=== PATIENT | female | born 1965 | race Caucasian/White ===

== ENCOUNTER 2021-01-23 11:19 | Observation (INO) | payer OTHER ==
[2021-01-23 12:15] LABS: Absolute Neutrophil Ct (ANC) 5.46 (1.4-6.9); BASOPHIL % 0.6 % (0.0-0.4); Basophil (Absolute #) 0.05 (0-0.4); Eosinophil % 3.1 % (0.00-5.0); Eosinophil (Absolute #) 0.24 (0-0.5); Hematocrit 41.8 % (35-47); Hemoglobin 14.2 gm/dl (12.0-16.0); Lymphocyte (Absolute #) 1.39 (1.0-4.6); Lymphocytes % 17.8 % (24.0-44.0); Mean Cell Volume 84.4 fl (78-100); Mean Corpuscular Hemoglobin 28.7 pg (26-32); Mean Platelet Volume 10.1 fl (7.5-11.0); Monocyte (Absolute #) 0.65 (0.0-1.3); Monocytes % 8.3 % (0.0-12.0); Neutrophil % 70.2 % (36.0-66.0); Platelet Count 203 K/mm3 (150-450); Red Blood Count 4.95 M/mm3 (4.1-5.4); White Blood Count 7.8 K/mm3 (4.0-10.5)
[2021-01-23] MEDS ORDERED: APRESOLINE 20 MG/ML INJ IV ONE (13:22)
[2021-01-23] MEDS ORDERED: BENADRYL 50 MG/ML IV ONE (13:23)
[2021-01-23] MEDS ORDERED: Reglan 10 MG/2 ML IV ONE (13:23)
[2021-01-23] MEDS ORDERED: TYLENOL 325 MG PO ONE (13:23)
[2021-01-23] MEDS ORDERED: TYLENOL 325 MG ONE (13:26)
[2021-01-23] MEDS ORDERED: BENADRYL 50 MG/ML ONE (13:43)
[2021-01-23] MEDS ORDERED: Reglan 10 MG/2 ML ONE (13:43)
[2021-01-23] MEDS ORDERED: Magnesium 1 Gm / 100 Ml D5W*** 100 ML IV ONE (13:43)
[2021-01-23] MEDS ORDERED: APRESOLINE 20 MG/ML INJ ONE (13:43)
[2021-01-23] MEDS: Magnesium 1 Gm / 100 Ml D5W*** 100 ML IV SCH (13:44)
--- NOTE | 2021-01-23 13:49 | ERPHSYRPT ---
- History of Present Illness Time Seen by Provider: 01/23/21 11:21 Source: patient Exam Limitations: no limitations Patient Subjective Stated Complaint: PT states "I have had a horrible headach for the past three days and my blood pressure was 180/98 this morning and I took an extra metoprolol and my head hurts so bad." Triage Nursing Assessment: Pt presented alert and oriented X 3, skin pwd. Pt ambulates with an upright steady gait, able to speak in clear full sentences pt in no apparent respiratory distress. Pt able to move all extremities. Pt pupils are PERRL. Pt had headache on right temporal region only. Physician History: 55 years old female with multiple medical problems including insulin-dependent diabetes mellitus, hypertension, hyperlipidemia, coronary artery disease status post post multiple stenting presented in the ER with right-sided headache for the last 3 days, continuous, without any significant aggravating or relieving factors. Denies any associated visual disturbance, numbness tingling or focal weakness. Described as a sharp pain moderate to severe intensity with some radiation to the neck area. No chest pain palpitations or shortness of breath reported. No difficulty speech. No history of migraines. Timing/Duration: day(s) (3), constant, gradual onset, worse Quality: sharpness Head Pain Location: frontal, temporal Severity of Pain-Max: moderate Severity of Pain-Current: moderate Recent Head Trauma: no recent headache/trauma Associated Symptoms: neck pain, sensitive to light, No loss of consciousness, No nausea/vomiting, No sinus infection, No speech problems, No stiff neck, No trouble walking, No vision changes, No visual disturbance Previous symptoms: no prior history Allergies/Adverse Reactions: clopidogrel [From Plavix] Allergy (Severe, Verified 01/23/21 11:33) Hives Home Medications: Amlodipine Besylate 5 mg [Norvasc 5 mg] 5 mg PO DAILY 01/23/21 [History] Aspirin EC 81 mg [Ecotrin 81 mg] 81 mg PO DAILY 01/23/21 [History] Gabapentin 400 mg [Neurontin 400 MG] 400 mg PO TID 01/23/21 [History] HydrALAzine HCL 25 MG TAB [Apresoline 25 MG TABLET] 25 mg PO BID 01/23/21 [History] Insulin Lispro [Admelog] 1 unit IM DAILY PRN 01/23/21 [History] Isosorbide Mononitrate [Isosorbide Mononitrate ER] 120 mg PO DAILY 01/23/21 [History] Levothyroxine Sodium [Levothyroxine] 50 mcg PO DAILY 01/23/21 [History] Lisinopril 40 mg PO DAILY 01/23/21 [History] Metoprolol Succinate 50 mg [Toprol Xl 50 MG] 50 mg PO BID 01/23/21 [History] Nitroglycerin 0.4 mg Tablet [Nitrostat 0.4 MG Tablet] 0.4 mg SL DAILY PRN 01/23/21 [History] Oxybutynin Chloride Xl 5 mg [Ditropan XL 5 MG] 5 mg PO DAILY 01/23/21 [History] Rosuvastatin Calcium 20 mg PO HS 01/23/21 [History] Ticagrelor [Brilinta] 90 mg PO BID 01/23/21 [History] Hx Tetanus, Diphtheria Vaccination/Date Given: No Hx Influenza Vaccination/Date Given: Yes Hx Pneumococcal Vaccination/Date Given: Yes Immunizations Up to Date: Yes Travel Risk - International Travel Have you traveled outside of the country in past 3 weeks: No - Coronavirus Screening Are you exhibiting any of the following symptoms?: No Close contact with a COVID-19 positive Pt in past 14-21 Days: No - Vaccine Status Have you recieved a Covid-19 vaccination: No - Review of Systems Constitutional: No Symptoms Eyes: No Symptoms Ears, Nose, & Throat: No Symptoms Respiratory: No Symptoms Cardiac: No Symptoms Abdominal/Gastrointestinal: No Symptoms Genitourinary Symptoms: No Symptoms Musculoskeletal: No Symptoms Skin: No Symptoms Neurological: Headache Psychological: No Symptoms Endocrine: No Symptoms Hematologic/Lymphatic: No Symptoms Immunological/Allergic: No Symptoms - Past Medical History Pertinent Past Medical History: Yes Cardiac History: Coronary Artery Disease, High Cholesterol, Hypertension Endocrine Medical History: Diabetes Type I - Past Surgical History Past Surgical History: Yes Other Surgical History: heart cath. tubal - Social History Smoking Status: Never smoker Exposure to second hand smoke: No Drug Use: none Patient Lives Alone: No - Female History Hx Last Menstrual Period: no more Hx Now: No - Nursing Vital Signs Nursing Vital Signs: Initial Vital Signs Temperature 97.4 F 01/23/21 11:23 Pulse Rate 66 01/23/21 11:23 Respiratory Rate 20 01/23/21 11:23 Blood Pressure 207/96 01/23/21 11:23 O2 Sat by Pulse Oximetry 97 01/23/21 11:23 Pain Scale Pain Intensity 7 - Physical Exam General Appearance: no apparent distress, alert Eye Exam: PERRL/EOMI, other (Questionable ptosis left) Ears, Nose, Throat Exam: normal ENT inspection, TMs normal, pharynx normal, moist mucous membranes Neck Exam: normal inspection, non-tender, supple, full range of motion Respiratory Exam: normal breath sounds, lungs clear Cardiovascular Exam: regular rate/rhythm, normal heart sounds Gastrointestinal/Abdominal Exam: soft, normal bowel sounds, No tenderness Back Exam: normal inspection, normal range of motion Extremity Exam: normal inspection, normal range of motion, pelvis stable Mental Status Exam: alert, oriented x 3, cooperative building carpenter Exam: normal hearing, normal speech, PERRL, No abnormal eye position Coordination/Gait Exam: normal finger to nose, normal gait, normal cerebellar function, negative Romberg's sign Motor/Sensory Exam: no motor deficit, no sensory deficit, no pronator drift, negative Babinski's sign Skin Exam: normal color SpO2 Interpretation: normal SpO2: 97 O2 Delivery: Room Air - Course EKG Interpreted by Me: RATE (59), Sinus Rafa, NORMAL AXIS, NORMAL INTERVALS, NORMAL QRS Ordered Tests: Active Orders 24 hr Category Date Time Status Manufacturing Assistant STAT Care 01/23/21 11:48 Active EKG-ER Only STAT Care 01/23/21 11:47 Active IV Insertion STAT Care 01/23/21 11:47 Active NPO (ED) STAT Care 01/23/21 11:47 Active Pulse Oximetry (ED) STAT Care 01/23/21 11:47 Active Tele-Health Consult ROUTINE Cons 01/23/21 13:32 Active CHEST 1 VIEW (PORTABLE) Stat Exams 01/23/21 11:[address] ANGIOGRAPHY NECK [CT] Stat Exams 01/23/21 13:23 Ordered CTA HEAD W AND/OR WO CONTRAST [CT] Stat Exams 01/23/21 13:24 Ordered HEAD WITHOUT CONTRAST [CT] Stat Exams 01/23/21 11:48 Taken CBC W DIFF Stat Lab 01/23/21 11:55 Completed CMP Stat Lab 01/23/21 11:55 Received Glucose Stat Lab 01/23/21 11:55 Completed POCT GLUCOSE Stat Lab 01/23/21 12:46 Received POCT GLUCOSE Stat Lab 01/23/21 12:47 Received POCT GLUCOSE Stat Lab 01/23/21 12:48 Received POCT GLUCOSE Stat Lab 01/23/21 12:48 Received POCT GLUCOSE Stat Lab 01/23/21 12:51 Completed POCT GLUCOSE Stat Lab 01/23/21 13:32 Completed TROPONIN Q3H Lab 01/23/21 11:55 Completed TROPONIN Q3H Lab 01/23/21 14:35 Received TROPONIN Q3H Lab 01/23/21 18:00 Ordered TROPONIN Q3H Lab 01/23/21 21:00 Ordered TROPONIN Q3H Lab 01/24/21 00:00 Ordered UA W/RFX UR CULTURE Stat Lab 01/23/21 11:47 Ordered Medication Summary Generic Name Dose Route Start Last Admin Trade Name Freq PRN Reason Stop Dose Admin Magnesium Sulfate/Dextrose 100 mls @ 100 mls/hr 01/23/21 13:45 01/23/21 13:44 Magnesium 1 Gm / 100 Ml D5w IV 01/23/21 15:44 100 mls/hr Q1H CATHY Administration Discontinued Medications Generic Name Dose Route Start Last Admin Trade Name Freq PRN Reason Stop Dose Admin Acetaminophen 975 mg 01/23/21 13:23 01/23/21 13:26 Tylenol 325 Mg PO 01/23/21 13:24 975 mg STAT ONE Administration Acetaminophen Confirm 01/23/21 13:26 Tylenol 325 Mg Administered 01/23/21 13:27 Dose 975 mg .ROUTE .STK-MED ONE Diphenhydramine HCl 25 mg 01/23/21 13:23 01/23/21 13:44 Benadryl 50 Mg/Ml IV 01/23/21 13:24 25 mg STAT ONE Administration Diphenhydramine HCl Confirm 01/23/21 13:43 Benadryl 50 Mg/Ml Administered 01/23/21 13:44 Dose 50 mg .ROUTE .STK-MED ONE Hydralazine HCl 10 mg 01/23/21 13:22 01/23/21 13:44 Apresoline 20 Mg/Ml Inj IV 01/23/21 13:23 10 mg STAT ONE Administration Hydralazine HCl Confirm 01/23/21 13:43 Apresoline 20 Mg/Ml Inj Administered 01/23/21 13:44 Dose 20 mg .ROUTE .STK-MED ONE Metoclopramide HCl 10 mg 01/23/21 13:23 01/23/21 13:44 Reglan 10 Mg/2 Ml IV 01/23/21 13:24 10 mg STAT ONE Administration Metoclopramide HCl Confirm 01/23/21 13:43 Reglan 10 Mg/2 Ml Administered 01/23/21 13:44 Dose 10 mg .ROUTE .STK-MED ONE Lab/Rad Data: Laboratory Result Diagrams 01/23/21 11:55 Laboratory Results 01/23/21 01/23/21 01/23/21 Range/Units 13:32 12:51 11:55 WBC (4.0-10.5) K/mm3 RBC (4.1-5.4) M/mm3 Hgb (12.0-16.0) gm/dl Hct (35-47) % MCV (78-100) fl MCH (26-32) pg MCHC (32-36) g/dl RDW (11.5-14.0) % Plt Count (150-450) K/mm3 MPV (7.5-11.0) fl Gran % (36.0-66.0) % Eos # (Auto) (0-0.5) Absolute Lymphs (auto) (1.0-4.6) Absolute Monos (auto) (0.0-1.3) Lymphocytes % (24.0-44.0) % Monocytes % (0.0-12.0) % Eosinophils % (0.00-5.0) % Basophils % (0.0-0.4) % Absolute Granulocytes (1.4-6.9) Basophils # (0-0.4) Glucose (74-106) mg/dL POC Glucometer 80 79 (74 to 106) mg/dL Troponin I < 0.012 (0.000-0.034) ng/mL 01/23/21 01/23/21 Range/Units 11:55 11:55 WBC 7.8 (4.0-10.5) K/mm3 RBC 4.95 (4.1-5.4) M/mm3 Hgb 14.2 (12.0-16.0) gm/dl Hct 41.8 (35-47) % MCV 84.4 (78-100) fl MCH 28.7 (26-32) pg MCHC 34.0 (32-36) g/dl RDW 14.0 (11.5-14.0) % Plt Count 203 (150-450) K/mm3 MPV 10.1 (7.5-11.0) fl Gran % 70.2 H (36.0-66.0) % Eos # (Auto) 0.24 (0-0.5) Absolute Lymphs (auto) 1.39 (1.0-4.6) Absolute Monos (auto) 0.65 (0.0-1.3) Lymphocytes % 17.8 L (24.0-44.0) % Monocytes % 8.3 (0.0-12.0) % Eosinophils % 3.1 (0.00-5.0) % Basophils % 0.6 (0.0-0.4) % Absolute Granulocytes 5.46 (1.4-6.9) Basophils # 0.05 (0-0.4) Glucose 87 (74-106) mg/dL POC Glucometer (74 to 106) mg/dL Troponin I (0.000-0.034) ng/mL - Progress Progress: improved Air Movement: fair Progress Note: 01/23/21 14:59 55 years old female with multiple medical problems is evaluated for right-sided headache without any obvious focal neuro deficit but subjective feeling of left eyelid droop. Patient has a blood pressure in 200 on presentation without any chest pain and EKG showed sinus bradycardia with no acute ischemic changes and negative initial troponins. Chest x-ray negative for any acute cardiopulmonary findings CT head stroke protocol is obtained which is negative for any acute findings. [facility] neurology consult is obtained who has evaluated patient and think it is possible PRES and with questionable left ptosis recommended CTA head and neck to exclude any dissection. Recommended treating her blood pressure with a MAP between 80-1 20. Admission to telemetry and MRI if symptoms do not go away until tomorrow and in case of worsening need MRI earlier than that. Patient is already on dual antiplatelet therapy and did not recommend any more. She is given mag sulfate along with Reglan and Benadryl, on reevaluation her headache is much better. I have also given her hydralazine 10 mg IV and pressure improved to 160s systolic. Plan discussed with patient who understand and agrees with it. I discussed with Dr. Cheng, reviewed history, work-up and telemetry neuro recommendation, agreed with admission. Blood Culture(s) Obtained: Yes Antibiotics given: Yes Discussed with .: Other Counseled pt/family regarding: lab results, diagnosis, need for follow-up, rad results - Departure Departure Disposition: Observation Clinical Impression: Hypertensive encephalopathy, PRES (posterior reversible encephalopathy syndrome) Headache Qualifiers: Headache type: unspecified Headache chronicity pattern: acute headache Intractability: not intractable Qualified Code(s): R51.9 - Headache, unspecified Condition: Stable Critical Care Time: Yes Critical Care Time(excluding separately billable procedures): Critical 30-74 mins Referrals: TATI MILLER [Primary Care Provider] -
[2021-01-23 14:56] LABS: ALBUMIN 4.2 g/dL (3.5-5.0); ALKALINE PHOSPHATASE 81 U/L (38-126); ANION GAP 11.9 MEQ/L (5-15); BLOOD UREA NITROGEN 14 mg/dL (7-17); CHLORIDE 100 mmol/L (98-107); Calcium 9.5 mg/dL (8.4-10.2); Carbon Dioxide 30 mmol/L (22-30); Creatinine 1 0.74 mg/dL (0.52-1.04); EST GLOMERULAR FILTRATION RATE > 60.0 ML/MIN; Glucose 140 mg/dL (74-106); Potassium 4.4 mmol/L (3.5-5.1); SGOT/AST 38 U/L (14-36); SGPT/ALT 27 U/L (0-35); SODIUM 138 mmol/L (137-145); Total Protein 7.3 g/dL (6.3-8.2)
[2021-01-23] MEDS ORDERED: Zofran 4 MG/2 ML VIAL IV PRN (16:56)
[2021-01-23] MEDS ORDERED: MORPHINE SULFATE 2 MG INJ IV PRN (16:56)
[2021-01-23 17:29] LABS: Appearance CLEAR (CLEAR); Bilirubin NEGATIVE (NEGATIVE); Blood NEGATIVE Ery/ul (0-5); Epithelial Cells RARE /HPF (FEW); Glucose NEGATIVE (NEGATIVE); Ketones NEGATIVE (NEGATIVE); Leukocyte Esterase NEGATIVE (NEGATIVE); Mucus SLIGHT /HPF (NEGATIVE); Nitrite NEGATIVE (NEGATIVE); Protein,Urine Dip NEGATIVE (Negative); Specific Gravity 1.019 (1.005-1.025); Urobilinogen NEGATIVE mg/dL (0-1)
--- NOTE | 2021-01-23 17:39 | XRAY ---
Indication: Headache. Stroke. Comparison: None Portable chest clear. Heart not enlarged with incidental coronary stent grafts. Bony thorax intact with minimal degenerative changes and mild dextroscoliosis. Impression: Nonacute chest with chronic features.
--- NOTE | 2021-01-23 17:39 | XRAY ---
Indication: Headache. Stroke. Multiple contiguous images obtained through the head without contrast. Comparison: None. Age-appropriate global atrophy and minimal periventricular degenerative micro-ischemia bilaterally. No acute intracranial hemorrhage, abnormal extra-axial fluid collection, or mass effect. Fourth ventricle is midline without hydrocephalus. Bony calvarium intact. Visualized paranasal sinuses and mastoid air cells are clear. Impression: Nonacute senile brain. Comment: Preliminary interpretation made by [facility]. No critical discrepancy.
--- NOTE | 2021-01-23 17:45 | XRAY ---
Indication: Headache. Stroke. Conventional contrast enhanced CTA neck performed using 100 cc Isovue 370 contrast. Two-dimensional sagittal and coronal reformatted images obtained. Additional 3-dimensional reformatted images obtained using a separate workstation. Comparison: None. Aortic arch demonstrates minimal arteriosclerotic calcifications without aneurysm/dissection. Normal widely patent branching right brachiocephalic, left common carotid, and left subclavian arteries. Examination of the right carotid circulation demonstrates widely patent common carotid artery. At the level above, there is mild heterogeneous arteriosclerotic plaquing slightly extending into the origin of the internal carotid artery producing 30-40% stenosis. Remaining external carotid and distal internal carotid arteries are normal in CTA appearance. Examination of the left carotid circulation demonstrates widely patent common carotid artery. Very minimal eccentric calcified plaquing at the level of the bulb. Remaining internal carotid and external carotid arteries are normal in CTA appearance. Vertebral arteries are bilaterally normal in CTA appearance with the right slightly larger in caliber. Visualized noncontrasted soft tissues demonstrates a few centimeter/subcentimeter cervical and submandibular lymph nodes bilaterally. No pathologic lymphadenopathy. Parotid and submandibular glands are bilaterally symmetric. Supra and infraglottic airway widely patent. Cervical spine intact. Lung apices demonstrates minimal patchy groundglass airspace opacities. CTA head reported separately. Impression: 1. Mild right carotid bulb and internal carotid artery arteriosclerotic plaquing producing 30-40% stenosis. 2. Faint left carotid bulb calcification. 3. Remaining CTA neck is negative. 4. Incidental biapical patchy groundglass airspace opacities. Comment: Preliminary interpretation made by [facility]. No critical discrepancy.
--- NOTE | 2021-01-23 17:47 | XRAY ---
Indication: Headache. Stroke. Conventional contrast enhanced CTA head performed using 100 cc Isovue 370 contrast. Two-dimensional sagittal and coronal reformatted images obtained. Additional 3-dimensional reformatted images obtained using a separate workstation. Comparison: None. CTA neck reported separately. Internal carotid arteries are bilaterally symmetric with minimal parasellar arteriosclerotic calcifications without critical stenosis/obstruction. Normal carotid terminus with normal branching A1 and M1 segments bilaterally. More distal anterior cerebral, middle cerebral, anterior communicating, and posterior communicating arteries are normal in CTA appearance. Posterior circulation demonstrates normal CTA appearance to the basilar artery with normal branching left/right posterior cerebral and left/right superior cerebellar arteries. Venous system unremarkable. No abnormal enhancing intra-or extra-axial mass. Impression: 1. Minimal bilateral internal carotid artery calcifications without critical stenosis/obstruction. 2. Remaining CTA head is negative. Comment: Preliminary interpretation made by [facility]. No critical discrepancy.
[2021-01-23] MEDS ORDERED: Lopressor 50 MG ONE (18:23)
[2021-01-23] MEDS ORDERED: Apresoline 25 MG TABLET ONE (18:23)
[2021-01-23] MEDS: TYLENOL 325 MG PO PRN (18:25)
[2021-01-23] MEDS ORDERED: ZOCOR 20MG PO ONE (22:00)
[2021-01-23] MEDS ORDERED: BRILINTA PO ONE (22:00)
[2021-01-23] MEDS ORDERED: Apresoline 25 MG TABLET PO ONE (22:00)
[2021-01-23] MEDS ORDERED: Neurontin 400 MG PO ONE (22:00)
[2021-01-23] MEDS ORDERED: Lopressor 50 MG PO ONE (22:00)
[2021-01-23] MEDS: HUMALOG SQ PRN (22:17)
[2021-01-24 01:16] LABS: Absolute Neutrophil Ct (ANC) 4.97 (1.4-6.9); BASOPHIL % 0.5 % (0.0-0.4); Basophil (Absolute #) 0.04 (0-0.4); Eosinophil % 2.3 % (0.00-5.0); Eosinophil (Absolute #) 0.18 (0-0.5); Hematocrit 39.6 % (35-47); Hemoglobin 13.5 gm/dl (12.0-16.0); Lymphocyte (Absolute #) 2.02 (1.0-4.6); Lymphocytes % 25.6 % (24.0-44.0); Mean Cell Volume 85.3 fl (78-100); Mean Corpuscular Hemoglobin 29.1 pg (26-32); Mean Corpuscular Hgb Concent. 34.1 g/dl (32-36); Mean Platelet Volume 9.8 fl (7.5-11.0); Monocyte (Absolute #) 0.67 (0.0-1.3); Monocytes % 8.5 % (0.0-12.0); Neutrophil % 63.1 % (36.0-66.0); Platelet Count 181 K/mm3 (150-450); Red Blood Count 4.64 M/mm3 (4.1-5.4); Red Cell Distribution Width 14.1 % (11.5-14.0); White Blood Count 7.9 K/mm3 (4.0-10.5)
[2021-01-24 01:45] LABS: ALBUMIN 3.9 g/dL (3.5-5.0); ALKALINE PHOSPHATASE 70 U/L (38-126); ANION GAP 12.1 MEQ/L (5-15); BLOOD UREA NITROGEN 19 mg/dL (7-17); CHLORIDE 101 mmol/L (98-107); Calcium 8.8 mg/dL (8.4-10.2); Carbon Dioxide 29 mmol/L (22-30); Creatinine 1 0.77 mg/dL (0.52-1.04); EST GLOMERULAR FILTRATION RATE > 60.0 ML/MIN; Glucose 147 mg/dL (74-106); Potassium 3.6 mmol/L (3.5-5.1); SGOT/AST 23 U/L (14-36); SGPT/ALT 24 U/L (0-35); SODIUM 138 mmol/L (137-145); Total Protein 6.8 g/dL (6.3-8.2)
[2021-01-24] MEDS: HUMALOG SQ PRN ×4 (08:06→21:18)
[2021-01-24] MEDS: TYLENOL 325 MG PO PRN (08:06)
[2021-01-24] MEDS: APRESOLINE 20 MG/ML INJ IV PRN (08:10)
[2021-01-24] MEDS: PROTONIX 40 MG IV IV SCH (09:29)
[2021-01-24] MEDS ORDERED: Nitrostat 0.4 MG Tablet SL PRN (10:47)
[2021-01-24] MEDS ORDERED: HUMALOG SQ PRN (10:47)
[2021-01-24] MEDS: NORVASC 5 MG PO SCH (11:46)
[2021-01-24] MEDS: ECOTRIN 81 MG PO SCH (11:46)
[2021-01-24] MEDS: SYNTHROID 50 MCG PO SCH (11:46)
[2021-01-24] MEDS: Apresoline 25 MG TABLET PO SCH ×3 (11:47→21:19)
[2021-01-24] MEDS: Neurontin 400 MG PO SCH ×3 (11:47→21:20)
[2021-01-24] MEDS: Zestril 20 MG PO SCH (11:47)
[2021-01-24] MEDS: Imdur 60MG PO SCH (11:47)
[2021-01-24] MEDS: Lopressor 50 MG PO SCH ×2 (11:47→21:19)
[2021-01-24] MEDS: BRILINTA PO SCH ×2 (11:48→21:19)
[2021-01-24] MEDS: Magnesium 1 Gm / 100 Ml D5W*** 100 ML IV SCH (16:30)
[2021-01-24] MEDS: ZOCOR 20MG PO SCH (21:20)
[2021-01-24] MEDS ORDERED: NON-FORMULARY ITEM (Rosuvastatin Calcium [Rosuvastatin Calcium] 20 MG) PO SCH (22:00)
[2021-01-25] MEDS: TYLENOL 325 MG PO PRN ×2 (05:28→11:40)
[2021-01-25] MEDS: APRESOLINE 20 MG/ML INJ IV PRN (05:28)
--- NOTE | 2021-01-25 06:33 | PCM.HP ---
History of Present Illness - Chief Complaint Chief Complaint: Hypertensive encephalopathy Date: 01/24/21 History of Present Illness: is a 55 year old female. Pt presented to ER after 3 days of markedly uncontrolled bp and global headache. Pt. with bp that high and persistent headache was observed for further evaluation - Review of Systems Constitutional: No Fever, No Chills Eyes: No Symptoms Ears, Nose, & Throat: No Symptoms Respiratory: No Cough, No Short Of Breath Cardiac: No Chest Pain, No Edema, No Syncope Abdominal/Gastrointestinal: No Abdominal Pain, No Nausea, No Vomiting, No Diarrhea Genitourinary Symptoms: No Dysuria Musculoskeletal: No Back Pain, No Neck Pain Skin: No Rash Neurological: Headache, No Dizziness, No Focal Weakness, No Sensory Changes Psychological: No Symptoms Endocrine: No Symptoms Hematologic/Lymphatic: No Symptoms Immunological/Allergic: No Symptoms Medications & Allergies Home Medications: Home Medication List Amlodipine Besylate 5 mg [Norvasc 5 mg] 5 mg PO DAILY 01/23/21 [History Confirmed 01/23/21] Aspirin EC 81 mg [Ecotrin 81 mg] 81 mg PO DAILY 01/23/21 [History Confirmed 01/23/21] Gabapentin 400 mg [Neurontin 400 MG] 400 mg PO TID 01/23/21 [History Confirmed 01/23/21] HydrALAzine HCL 25 MG TAB [Apresoline 25 MG TABLET] 25 mg PO BID 01/23/21 [History Confirmed 01/23/21] Insulin Lispro [Admelog] 1 unit IM DAILY PRN 01/23/21 [History Confirmed 01/23/21] Isosorbide Mononitrate [Isosorbide Mononitrate ER] 120 mg PO DAILY 01/23/21 [History Confirmed 01/23/21] Levothyroxine Sodium [Levothyroxine] 50 mcg PO DAILY 01/23/21 [History Confirmed 01/23/21] Lisinopril 40 mg PO DAILY 01/23/21 [History Confirmed 01/23/21] Metoprolol Tartrate 50 mg [Lopressor 50 MG] 50 mg PO BID 01/23/21 [History Confirmed 01/23/21] Nitroglycerin 0.4 mg Tablet [Nitrostat 0.4 MG Tablet] 0.4 mg SL DAILY PRN 01/23/21 [History Confirmed 01/23/21] Rosuvastatin Calcium 20 mg PO HS 01/23/21 [History Confirmed 01/23/21] Ticagrelor [Brilinta] 90 mg PO BID 01/23/21 [History Confirmed 01/23/21] Allergies/Adverse Reactions: Allergies Allergy/AdvReac Type Severity Reaction Status Date / Time clopidogrel [From Plavix] Allergy Severe Hives Verified 01/23/21 11:33 - Past Medical History Past Medical History: Yes Cardiac History: Coronary Artery Disease, High Cholesterol, Hypertension Endocrine Medical History: Diabetes Type I - Female History Hx Last Menstrual Period: no more Are you now?: No - Past Surgical History Past Surgical History: Yes Other Surgical History: heart cath. tubal - Social History Smoking Status: Never smoker Exposure to second hand smoke: No Alcohol: None Drug Use: none - Physical Exam Vital Signs: Vital Signs - 24 hr Temp Pulse Resp BP Pulse Ox 01/25/21 05:00 71 16 199/91 93 L 01/24/21 23:48 98.9 F 66 16 172/75 93 L 01/24/21 19:45 98.6 F 68 16 171/71 95 01/24/21 17:00 98.0 F 64 20 177/76 93 L 01/24/21 13:00 96.4 F 66 18 167/74 96 01/24/21 09:35 141/65 01/24/21 08:00 95.7 F 64 18 187/77 96 General Appearance: no apparent distress, alert Neurologic Exam: alert, oriented x 3, cooperative, normal mood/affect, nml cerebellar function, sensation nml, No motor deficits Eye Exam: PERRL/EOMI, eyes nml inspection Ears, Nose, Throat Exam: normal ENT inspection, pharynx normal, moist mucous membranes Neck Exam: normal inspection, non-tender, supple, full range of motion Respiratory Exam: normal breath sounds, lungs clear, No respiratory distress Cardiovascular Exam: regular rate/rhythm, normal heart sounds, normal peripheral pulses Gastrointestinal/Abdomen Exam: soft, normal bowel sounds, No tenderness, No mass Back Exam: normal inspection, normal range of motion, No CVA tenderness, No vertebral tenderness Extremity Exam: normal inspection, normal range of motion, pelvis stable Skin Exam: normal color, warm, dry, No rash Lymphatic Exam: No adenopathy Results - Labs Lab/Micro Results: Lab Results-Last 24 Hours 01/24/21 01/24/21 01/24/21 Range/Units 07:39 11:46 17:15 POC Glucometer 208 H 360 H 213 H (74 to 106) mg/dL 01/24/21 Range/Units 20:59 POC Glucometer 311 H (74 to 106) mg/dL Accuchecks Date 01/24/21 Date 01/24/21 Date 01/24/21 Date 01/24/21 Time 11:30 - Radiology Impressions Radiology Exams & Impressions: Radiology Procedures Category Date Time Status CHEST 1 VIEW (PORTABLE) Stat Exams 01/23/21 11:[address] ANGIOGRAPHY NECK [CT] Stat Exams 01/23/21 13:23 Completed CTA HEAD W AND/OR WO CONTRAST [CT] Stat Exams 01/23/21 13:24 Completed HEAD WITHOUT CONTRAST [CT] Stat Exams 01/23/21 11:48 Completed MRI BRAIN W & W/O CONTRAST [MRI] Routine Exams 01/25/21 Ordered Assessment/Plan (1) Headache Current Visit: Yes Status: Acute Qualifiers: Headache type: unspecified Headache chronicity pattern: acute headache Intractability: not intractable Qualified Code(s): R51.9 - Headache, unspecified Code(s): R51.9 - HEADACHE, UNSPECIFIED (2) Hypertensive encephalopathy Current Visit: Yes Status: Acute Assessment & Plan: Blood pressure medications will be changed to better control the bp Code(s): I67.4 - HYPERTENSIVE ENCEPHALOPATHY (3) PRES (posterior reversible encephalopathy syndrome) Current Visit: Yes Status: Acute Assessment & Plan: MRI for further evaluation Code(s): I67.83 - POSTERIOR REVERSIBLE ENCEPHALOPATHY SYNDROME
[2021-01-25] MEDS ORDERED: Hydromorphone 1 mg/ml Injection IV ONE (07:44)
[2021-01-25] MEDS: HUMALOG SQ PRN ×4 (08:02→21:57)
[2021-01-25] MEDS ORDERED: Valium 5 MG PO ONE (08:34)
[2021-01-25] MEDS ORDERED: NON-FORMULARY ITEM (Levothyroxine Sodium [Levothyroxine] 50 MCG) PO SCH (10:00)
[2021-01-25] MEDS ORDERED: ISOSORBIDE MONONITRATE 120 MG PO SCH (10:00)
[2021-01-25] MEDS ORDERED: NON-FORMULARY ITEM (Lisinopril [Lisinopril] 40 MG) PO SCH (10:00)
--- NOTE | 2021-01-25 10:40 | XRAY ---
Indication: Stroke symptoms. Hypertension. Sagittal, coronal, and axial MRI brain performed using pre and post T1, T2, FLAIR, diffusion, and ADC sequences. 17 cc Dotarem contrast used. Comparison: None Ventriculosulcal pattern appears symmetric. A few tiny T2 signal intensities seen in the periventricular white matter favoring degenerative micro-ischemia. No acute intracranial hemorrhage, abnormal extra-axial fluid collection, or mass effect. Diffusion images are negative for restricted signal. Following gadolinium, there is no abnormal enhancing intra or extra-axial mass. Fourth ventricle is midline without hydrocephalus. 7/8 cranial nerve complex bilaterally symmetric. Normal flow void signal within the major intracerebral circulation. Normal appearing craniocervical junction and sella turcica. Paranasal sinuses are clear. Impression: 1. Minimal degenerative micro-ischemia within normal limits for patient's age. 2. Remaining MRI brain with contrast exam is negative.
[2021-01-25] MEDS: PROTONIX 40 MG IV IV SCH (11:38)
[2021-01-25] MEDS: Apresoline 25 MG TABLET PO SCH ×3 (11:38→21:49)
[2021-01-25] MEDS: Imdur 60MG PO SCH (11:39)
[2021-01-25] MEDS: Lopressor 50 MG PO SCH ×2 (11:40→21:43)
[2021-01-25] MEDS: NORVASC 5 MG PO SCH (11:41)
[2021-01-25] MEDS: SYNTHROID 50 MCG PO SCH (11:41)
[2021-01-25] MEDS: ECOTRIN 81 MG PO SCH (11:45)
[2021-01-25] MEDS: Zestril 20 MG PO SCH (11:45)
[2021-01-25] MEDS: Neurontin 400 MG PO SCH ×3 (11:46→21:43)
[2021-01-25] MEDS: BRILINTA PO SCH ×2 (11:46→21:44)
[2021-01-25] MEDS: ZOCOR 20MG PO SCH (21:43)
[2021-01-25] MEDS ORDERED: Apresoline 25 MG TABLET PO SCH (22:00)
[2021-01-26 06:34] LABS: Hematocrit 41.4 % (35-47); Hemoglobin 13.6 gm/dl (12.0-16.0); Mean Cell Volume 86.8 fl (78-100); Mean Corpuscular Hemoglobin 28.5 pg (26-32); Mean Corpuscular Hgb Concent. 32.9 g/dl (32-36); Mean Platelet Volume 10.3 fl (7.5-11.0); Platelet Count 195 K/mm3 (150-450); Red Blood Count 4.77 M/mm3 (4.1-5.4); Red Cell Distribution Width 14.2 % (11.5-14.0); White Blood Count 7.2 K/mm3 (4.0-10.5)
[2021-01-26 06:59] LABS: ANION GAP 11.4 MEQ/L (5-15); BLOOD UREA NITROGEN 17 mg/dL (7-17); CHLORIDE 100 mmol/L (98-107); Calcium 8.8 mg/dL (8.4-10.2); Carbon Dioxide 30 mmol/L (22-30); Creatinine 1 0.78 mg/dL (0.52-1.04); EST GLOMERULAR FILTRATION RATE > 60.0 ML/MIN; Glucose 220 mg/dL (74-106); Potassium 3.8 mmol/L (3.5-5.1); SODIUM 138 mmol/L (137-145)
[2021-01-26] MEDS: HUMALOG SQ PRN ×2 (08:38→12:45)
[2021-01-26] MEDS: Zestril 20 MG PO SCH (08:39)
[2021-01-26] MEDS: Lopressor 50 MG PO SCH (08:39)
[2021-01-26] MEDS: BRILINTA PO SCH (08:40)
[2021-01-26] MEDS: Imdur 60MG PO SCH (08:40)
[2021-01-26] MEDS: Apresoline 25 MG TABLET PO SCH ×2 (08:40→13:27)
[2021-01-26] MEDS: SYNTHROID 50 MCG PO SCH (08:40)
[2021-01-26] MEDS: PROTONIX 40 MG IV IV SCH (08:40)
[2021-01-26] MEDS: ECOTRIN 81 MG PO SCH (08:40)
[2021-01-26] MEDS: Neurontin 400 MG PO SCH (08:40)
[2021-01-26] MEDS: NORVASC 5 MG PO SCH (08:40)
[2021-01-26] MEDS ORDERED: Hydromorphone 1 mg/ml Injection IV ONE (08:58)
[2021-01-26] MEDS ORDERED: Valium 5 MG PO PRN (08:58)
--- NOTE | 2021-01-26 12:30 | XRAY ---
Indication: Stroke like symptoms. Possible thrombosis. Negative MRI brain without contrast exam one day earlier. Two-dimensional [id number] MRV brain performed. Three-dimensional postprocessing MIP images obtained. Comparison: None Visualized superior/inferior sagittal, straight, left/right transverse, and left/right sigmoid sinuses are negative for thrombosis. This is further supported on the recent CTA head exam. Impression: Negative MRV brain.
[2021-01-26 13:22] VITALS: BP 171/75; PULSE 64; O2SAT 91
--- NOTE | 2021-01-26 19:34 | PCM.DS ---
Discharge Summary Date of Admission: 01/23/21 16:53 Date of Discharge: 01/26/2021 Admitting Physician: KASHIF CAPPS Consults: Consults on Case 01/23/21 13:32 Tele-Health Consult ROUTINE Primary Care Provider: TATI MILLER Allergies Allergies clopidogrel [From Plavix] Allergy (Severe, Verified 01/23/21 11:33) [facility] Summary - Hospital Course Hospital Course: Pt. 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 Pt. initially had an MRI looking for PRES syndrome, this was negative, she then had a sed rate and MRV looking for inflammatory problem or cavernous sinus throm bosis respectively, both of which were negative, pts. blood pressure medications were adjusted and prior to d/c it was decided to add Imdur to her hs regimen as her bp was spiking between [id number]. Pt. noted she felt much better and after the work-up was completed it was felt the patient was stable for discharge to home with follow-up regarding the elevated uncontrolled hypertension. - Vitals & Intake/Output Vital Signs: Vital Signs Temperature 98.0 F 01/26/21 13:00 Pulse Rate 64 01/26/21 13:00 Respiratory Rate 16 01/26/21 13:00 Blood Pressure 171/75 01/26/21 13:00 O2 Sat by Pulse Oximetry 91 L 01/26/21 13:00 Intake & Output: Intake & Output 01/24/21 01/25/21 01/26/21 01/27/21 11:59 11:59 11:59 11:59 Intake Total 540 1440 1080 240 Output Total 250 900 Balance 559 544 1086 240 Weight 83.1 kg 81.7 kg 87.1 kg - Lab Result Diagrams: 01/26/21 05:30 01/26/21 04:53 Lab Results-Last 24 Hrs: Lab Results-Last 24 Hours 01/25/21 01/26/21 01/26/21 Range/Units 20:35 04:53 05:30 WBC 7.2 (4.0-10.5) K/mm3 RBC 4.77 (4.1-5.4) M/mm3 Hgb 13.6 (12.0-16.0) gm/dl Hct 41.4 (35-47) % MCV 86.8 (78-100) fl MCH 28.5 (26-32) pg MCHC 32.9 (32-36) g/dl RDW 14.2 H (11.5-14.0) % Plt Count 195 (150-450) K/mm3 MPV 10.3 (7.5-11.0) fl ESR (0-20) mm/hr Sodium 138 (137-145) mmol/L Potassium 3.8 (3.5-5.1) mmol/L Chloride 100 (98-107) mmol/L Carbon Dioxide 30 (22-30) mmol/L Anion Gap 11.4 (5-15) MEQ/L BUN 17 (7-17) mg/dL Creatinine 0.78 (0.52-1.04) mg/dL Estimated GFR > 60.0 ML/MIN Glucose 220 H (74-106) mg/dL POC Glucometer 433 H (74 to 106) mg/dL Calcium 8.8 (8.4-10.2) mg/dL 01/26/21 01/26/21 01/26/21 Range/Units 08:08 09:10 12:09 WBC (4.0-10.5) K/mm3 RBC (4.1-5.4) M/mm3 Hgb (12.0-16.0) gm/dl Hct (35-47) % MCV (78-100) fl MCH (26-32) pg MCHC (32-36) g/dl RDW (11.5-14.0) % Plt Count (150-450) K/mm3 MPV (7.5-11.0) fl ESR 15 (0-20) mm/hr Sodium (137-145) mmol/L Potassium (3.5-5.1) mmol/L Chloride (98-107) mmol/L Carbon Dioxide (22-30) mmol/L Anion Gap (5-15) MEQ/L BUN (7-17) mg/dL Creatinine (0.52-1.04) mg/dL Estimated GFR ML/MIN Glucose (74-106) mg/dL POC Glucometer 259 H 289 H (74 to 106) mg/dL Calcium (8.4-10.2) mg/dL - Radiology Exams Ordered Rad Exams-Entire Visit: Radiology Procedures Category Date Time Status MRA BRAIN WITHOUT CONTRAST [MRI] Routine Exams 01/26/21 08:53 Completed MRI BRAIN W & W/O CONTRAST [MRI] Routine Exams 01/25/21 10:07 Completed Discharge Exam General Appearance: no apparent distress, alert Neurologic Exam: alert, oriented x 3, cooperative, 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, normal mood/affect, nml cerebellar function, sensation nml, No motor deficits, No sensory deficit, No motor weakness, No facial droop, No aphasia, No dysarthria, No abnormal cerebellar tests Eye Exam: PERRL, EOMI, eyes nml inspection Ears, Nose, Throat Exam: normal ENT inspection, pharynx normal, moist mucous m embranes Neck Exam: normal inspection, non-tender, supple, full range of motion Respiratory Exam: normal breath sounds, lungs clear, No respiratory distress Cardiovascular Exam: regular rate/rhythm, normal heart sounds Gastrointestinal/Abdomen Exam: soft, No tenderness, No mass Pelvic Exam: deferred Rectal Exam: deferred Back Exam: normal inspection, normal range of motion, No CVA tenderness, No vertebral tenderness Extremity Exam: normal inspection, normal range of motion Skin Exam: normal color, warm, dry Final Diagnosis/Problem List - Final Discharge Diagnosis/Problem (1) Headache Status: Acute Code(s): R51.9 - HEADACHE, UNSPECIFIED (2) Hypertensive encephalopathy Status: Acute Code(s): I67.4 - HYPERTENSIVE ENCEPHALOPATHY - Discharge Disposition: Home, Self-Care Condition: Stable Prescriptions: New HydrALAzine HCL 25 MG TAB [Apresoline 25 MG TABLET] 50 mg PO QID #120 tablet Isosorbide Mononitrate 60 mg [Imdur 60MG] 120 mg PO BID #60 tab Amlodipine Besylate 5 mg [Norvasc 5 mg] 10 mg PO DAILY #30 tablet Continue Lisinopril 40 mg PO DAILY Aspirin EC 81 mg [Ecotrin 81 mg] 81 mg PO DAILY Insulin Lispro [Admelog] 1 unit IM DAILY PRN PRN Reason: Hyperglycemia Gabapentin 400 mg [Neurontin 400 MG] 400 mg PO TID Ticagrelor [Brilinta] 90 mg PO BID Nitroglycerin 0.4 mg Tablet [Nitrostat 0.4 MG Tablet] 0.4 mg SL DAILY PRN PRN Reason: Pain Levothyroxine Sodium [Levothyroxine] 50 mcg PO DAILY Rosuvastatin Calcium 20 mg PO HS Metoprolol Tartrate 50 mg [Lopressor 50 MG] 50 mg PO BID Discontinued Amlodipine Besylate 5 mg [Norvasc 5 mg] 5 mg PO DAILY Isosorbide Mononitrate [Isosorbide Mononitrate ER] 120 mg PO DAILY HydrALAzine HCL 25 MG TAB [Apresoline 25 MG TABLET] 25 mg PO BID Instructions: High Blood Pressure (DC) Follow up with: SYMONE FUENTES [CONSULTING PHYSICIAN] - 02/02/21 11:00 am (APPT WITH CARLYLE DRAKE) Forms: Discharge Instructions
[2021-01-26] MEDS ORDERED: Imdur 60MG PO SCH (22:00)
== END 2021-01-26 14:07 | disposition home or self-care (01) ==
LOC: ED 11:19 → MED SURG 16:53
PROVIDERS: ADMIT Family Medicine; ATTEND Family Medicine
DX: R51.9 Headache, unspecified (principal); I67.4 Hypertensive encephalopathy; E10.9 Type 1 diabetes mellitus without complications; I10 Essential (primary) hypertension; E78.5 Hyperlipidemia, unspecified; M54.2 Cervicalgia; Z79.899 Other long term (current) drug therapy; Z20.822 Contact with and (suspected) exposure to COVID-19
CPT/HCPCS: 36000; 36415; 70450; 70496; 70498; 70544; 70553; 71045; 80048; 80053; 81001; 82947; 84484; 85025; 85027; 85652; 93005; 93041; 93268; 94760; 96374; 96375; 99284; 99291; G0378; U0003; J0360; J1170; J1200; J1817; J2405; J3475; A9270-GY

== ENCOUNTER 2022-05-08 16:53 | Emergency (ER) | payer OTHER ==
[2022-05-08 17:07] VITALS: O2SAT 98
[2022-05-08] MEDS ORDERED: Adacel Vial IM ONE ×2 (17:27→17:40)
[2022-05-08 18:00] VITALS: BP 148/85
--- NOTE | 2022-05-08 18:22 | ERPHSYRPT ---
- History of Present Illness Time Seen by Provider: 05/08/22 17:15 Source: patient Exam Limitations: no limitations Patient Subjective Stated Complaint: Pt stepped on a board with a screw in it yesterday and it was stuck and her had to hit it a couple of times with a board to get it out Triage Nursing Assessment: Pt's brought her to the ER, hypertensive, denies pain, wound between the big toe and second toe on the left foot, pt is on blood thinners due to 9 stents in her heart, pt is a diabetic on an insulin pump, bruising to the medial outer big toe, needs a tetnus shot Physician History: 57yo F presents to the ER after stepping on a screw. The entry point is between the 1st and 2nd toe on the left foot. Patient has a hx of insulin dependent DM and CAD w/ 9 stents. She denies a hx of non healing wounds. She denies F/C/N/V, redness or drainage. She is unsure when her last tetnus shot was. Method of Injury: other (penetrating wound) Occurred: yesterday Quality: other (no pain) Severity of Pain-Max: none Severity of Pain-Current: none Lower Extremities Pain: 1st toe: left (puncture wound), 2nd toe: left Modifying Factors: Improves With: nothing Associated Symptoms: none Allergies/Adverse Reactions: clopidogrel [From Plavix] Allergy (Severe, Verified 05/08/22 17:07) Hives Home Medications: Aspirin EC 81 mg [Ecotrin 81 mg] 81 mg PO DAILY 01/23/21 [History] Gabapentin [Neurontin ] 400 mg PO TID 01/23/21 [History] Insulin Lispro [Admelog] 1 unit IM DAILY PRN 01/23/21 [History] Levothyroxine Sodium [Levothyroxine] 50 mcg PO DAILY 01/23/21 [History] Metoprolol Tartrate 50 mg [Lopressor 50 MG] 50 mg PO BID 01/23/21 [History] Nitroglycerin 0.4 mg Tablet [Nitrostat 0.4 MG Tablet] 0.4 mg SL DAILY PRN 01/23/21 [History] Rosuvastatin Calcium 20 mg PO HS 01/23/21 [History] Ticagrelor [Brilinta] 90 mg PO BID 01/23/21 [History] lisinopriL [Lisinopril] 40 mg PO DAILY 01/23/21 [History] HydrALAzine HCL 25 MG TAB [Apresoline 25 MG TABLET] 50 mg PO BID 05/08/22 [History] Hx Tetanus, Diphtheria Vaccination/Date Given: No Hx Influenza Vaccination/Date Given: Yes Hx Pneumococcal Vaccination/Date Given: Yes Immunizations Up to Date: No Travel Risk - International Travel Have you traveled outside of the country in past 3 weeks: No - Coronavirus Screening Are you exhibiting any of the following symptoms?: No Close contact with a COVID-19 positive Pt in past 14-21 Days: No - Vaccine Status Have you recieved a Covid-19 vaccination: No - Review of Systems Constitutional: No Symptoms Eyes: No Symptoms Ears, Nose, & Throat: No Symptoms Respiratory: No Symptoms Cardiac: No Symptoms Abdominal/Gastrointestinal: No Symptoms Genitourinary Symptoms: No Symptoms Musculoskeletal: No Symptoms Skin: Other (punture wound left foot) Neurological: No Symptoms Psychological: No Symptoms Endocrine: No Symptoms Hematologic/Lymphatic: No Symptoms Immunological/Allergic: No Symptoms All Other Systems: Reviewed and Negative - Past Medical History Pertinent Past Medical History: Yes Cardiac History: Coronary Artery Disease, High Cholesterol, Hypertension Endocrine Medical History: Diabetes Type I - Past Surgical History Past Surgical History: Yes Other Surgical History: heart cath. tubal - Social History Smoking Status: Never smoker Exposure to second hand smoke: No Drug Use: none Patient Lives Alone: No - Nursing Vital Signs Nursing Vital Signs: Initial Vital Signs Temperature 98.3 F 05/08/22 16:58 Pulse Rate 92 H 05/08/22 16:58 Blood Pressure 157/84 05/08/22 16:58 O2 Sat by Pulse Oximetry 98 05/08/22 16:58 Pain Scale Pain Intensity 0 - Physical Exam General Appearance: no apparent distress Eyes, Ears, Nose, Throat Exam: normal ENT inspection Neck Exam: normal inspection Cardiovascular/Respiratory Exam: normal breath sounds, regular rate/rhythm, heart sounds normal Gastrointestinal/Abdominal Exam: non-tender, soft Foot Exam: left foot: non-tender, other (puncture wound between 1st/2nd phalanges w/out signs of infection) Neuro/Tendon Exam: normal sensation Mental Status Exam: alert, oriented x 3, cooperative Skin Exam: normal color, warm, dry SpO2 Interpretation: normal SpO2: 98 O2 Delivery: Room Air - Course Nursing assessment & vital signs reviewed: Yes - Radiology Exams Left Foot X-ray Interpretation: Reviewed by me, Negative Ordered Tests: Medication Summary Discontinued Medications Generic Name Dose Route Start Last Admin Trade Name Kait PRN Reason Stop Dose Admin Diphtheria/Tetanus/Acell Pertussis 0.5 ml 05/08/22 17:27 05/08/22 17:41 Tdap --Diph,Pertuss(Acell),Tet Vac/Pf 0.5 Ml Vial IM 05/08/22 17:28 0.5 ml .ONCE ONE Administration Diphtheria/Tetanus/Acell Pertussis Confirm 05/08/22 17:40 Tdap --Diph,Pertuss(Acell),Tet Vac/Pf 0.5 Ml Vial Administered 05/08/22 17:41 Dose 0.5 ml IM .STK-MED ONE - Progress Progress: unchanged Progress Note: No foreign body or fracture noted on XR. Wound dressed and stressed importance of close PCP f/u. 05/11/22 14:33 Counseled pt/family regarding: need for follow-up, rad results - Departure Departure Disposition: Home Clinical Impression: Puncture wound of right foot without foreign body Qualifiers: Encounter type: initial encounter Qualified Code(s): S91.331A - Puncture wound without foreign body, right foot, initial encounter Condition: Good Critical Care Time: No Referrals: TATI MILLER [Primary Care Provider] - Follow up/PCP as directed Instructions: Wound Care ED Additional Instructions: Encouraged patient to change dressing daily, offload pressure as much as possible w/ dressings. Please f/u w/ PCP for re-eval in the next 5-7 days.
[2022-05-08 18:42] VITALS: PULSE 86
--- NOTE | 2022-05-09 09:04 | XRAY ---
Indication: Stepped on nail. Comparison: None 2 nonweightbearing views left foot demonstrates small plantar heel spur. No other bony, articular, or soft tissue abnormalities.
== END 2022-05-08 18:55 | disposition home or self-care (01) ==
LOC: ED 16:53
DX: S91.331A Puncture wound without foreign body, right foot, initial encounter (principal); W26.8XXA Contact with other sharp object(s), not elsewhere classified, initial encounter; W22.8XXA Striking against or struck by other objects, initial encounter; E78.5 Hyperlipidemia, unspecified; I10 Essential (primary) hypertension; E10.9 Type 1 diabetes mellitus without complications; Z79.4 Long term (current) use of insulin; Z96.41 Presence of insulin pump (external) (internal); Z79.02 Long term (current) use of antithrombotics/antiplatelets; Z79.899 Other long term (current) drug therapy; Z28.310 Unvaccinated for COVID-19
CPT/HCPCS: 73620; 90471; 90715; 99283